=== PATIENT | female | born 1945 | race Caucasian/White ===

== ENCOUNTER → 2018-01-08 | Outpatient (CLI) | payer MEDICARE | LOC: YCHH 11:25 | PROVIDERS: ATTEND General Practice | DX: N39.0 Urinary tract infection, site not specified (principal); D64.9 Anemia, unspecified; N18.9 Chronic kidney disease, unspecified; D50.0 Iron deficiency anemia secondary to blood loss (chronic) ==

== ENCOUNTER → 2018-02-09 | Outpatient (CLI) | payer MEDICARE | LOC: YCHH 14:53 | PROVIDERS: ATTEND Family Medicine | DX: N39.0 Urinary tract infection, site not specified (principal) ==

== ENCOUNTER → 2018-03-02 | Outpatient (CLI) | payer MEDICARE | LOC: YCHH 10:33 | PROVIDERS: ATTEND General Practice | DX: N39.0 Urinary tract infection, site not specified (principal) ==

== ENCOUNTER → 2018-04-13 | Outpatient (CLI) | payer MEDICARE | LOC: YCHH 10:58 | PROVIDERS: ATTEND General Practice | DX: N39.0 Urinary tract infection, site not specified (principal) ==

== ENCOUNTER → 2018-06-15 | Outpatient (CLI) | payer MEDICARE | LOC: YCHH 10:49 | PROVIDERS: ATTEND General Practice | DX: N39.0 Urinary tract infection, site not specified (principal) ==

== ENCOUNTER → 2018-11-02 | Outpatient (CLI) | payer MEDICARE | LOC: YCHH 11:54 | PROVIDERS: ATTEND General Practice | DX: D64.9 Anemia, unspecified (principal); N18.9 Chronic kidney disease, unspecified; E11.9 Type 2 diabetes mellitus without complications; E03.9 Hypothyroidism, unspecified; N39.0 Urinary tract infection, site not specified; I50.9 Heart failure, unspecified ==

== ENCOUNTER → 2019-02-01 | Outpatient (CLI) | payer MEDICARE | LOC: YCHH 09:58 | PROVIDERS: ATTEND General Practice | DX: N18.9 Chronic kidney disease, unspecified (principal); D64.9 Anemia, unspecified; E78.5 Hyperlipidemia, unspecified; D50.8 Other iron deficiency anemias; N39.0 Urinary tract infection, site not specified ==

== ENCOUNTER → 2019-03-15 | Outpatient (CLI) | payer MEDICARE | LOC: YCHH 11:29 | PROVIDERS: ATTEND General Practice | DX: N39.0 Urinary tract infection, site not specified (principal); D64.9 Anemia, unspecified; E11.9 Type 2 diabetes mellitus without complications; N18.9 Chronic kidney disease, unspecified; E03.9 Hypothyroidism, unspecified ==

== ENCOUNTER → 2019-06-14 | Outpatient (CLI) | payer MEDICARE | LOC: YCHH 10:01 | PROVIDERS: ATTEND General Practice | DX: D64.9 Anemia, unspecified (principal); E11.9 Type 2 diabetes mellitus without complications; N18.9 Chronic kidney disease, unspecified; E03.9 Hypothyroidism, unspecified ==

== ENCOUNTER → 2019-07-05 | Outpatient (CLI) | payer MEDICARE | LOC: YCHH 11:35 | PROVIDERS: ATTEND General Practice | DX: D64.9 Anemia, unspecified (principal); N18.9 Chronic kidney disease, unspecified; E03.9 Hypothyroidism, unspecified; E11.9 Type 2 diabetes mellitus without complications; I50.9 Heart failure, unspecified ==

== ENCOUNTER → 2019-07-19 | Outpatient (CLI) | payer MEDICARE | LOC: YCHH 11:07 | PROVIDERS: ATTEND General Practice | DX: N39.0 Urinary tract infection, site not specified (principal) ==

== ENCOUNTER → 2019-10-11 | Outpatient (CLI) | payer MEDICARE | LOC: YCHH 11:24 | PROVIDERS: ATTEND General Practice | DX: D64.9 Anemia, unspecified (principal); I50.9 Heart failure, unspecified; N18.9 Chronic kidney disease, unspecified; E78.5 Hyperlipidemia, unspecified ==

== ENCOUNTER → 2020-01-17 | Outpatient (CLI) | payer MEDICARE | LOC: YCHH 12:38 | PROVIDERS: ATTEND General Practice | DX: N18.9 Chronic kidney disease, unspecified (principal); D64.9 Anemia, unspecified; E78.5 Hyperlipidemia, unspecified; I50.9 Heart failure, unspecified ==

== ENCOUNTER → 2020-02-28 | Outpatient (CLI) | payer MEDICARE | END | disposition home or self-care (01) | LOC: YCHH 10:54 → LAB.NP 10:54 | PROVIDERS: ATTEND Family Medicine | DX: N39.0 Urinary tract infection, site not specified (principal) ==

== ENCOUNTER → 2020-03-02 | Outpatient (CLI) | payer MEDICARE, MEDICAID ==
--- NOTE | 2020-03-02 18:07 | MRI ---
EXAM DESCRIPTION: Lumbar Spine w/wo Contrast: Magnetic Resonance Imaging. CLINICAL HISTORY: ELEVATED ESR EPIDURAL ABSCESS COMPARISON: None Available. TECHNIQUE: Multiplanar, MRI, multiple standard sequences, without and with 1 mL for 5 kg body weight Gadolinium IV contrast, lumbar spine. No adverse reactions. FINDINGS: L5-S1: L5-S1 disc space is well identified on T2 axial series 501, image 3. Normal signal in the disc and disc space preserved. Particularly the bilateral facets joints and posterior ligaments more on the left. Normal enhancement. Minimal disc bulge into the left foramen with moderate to severe narrowing. Moderate to severe narrowing of the right foramen. No abnormal enhancement. L4-L5: Significant alignment abnormality with the L4 vertebral body oriented/subluxed to the right of the L5 vertebral body. This is consistent with a congenital abnormality with the disc space seen only as a thin line in the bone on the left aspect, also retrolisthesis 4 mm at L4-L5. 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 Facet joints are also partially fused more on the right and left. Rudimentary disc space is slightly wider to the right of midline. Partial right laminectomy with AP canal diameter 10 mm. Hyperintense T1, T2, and STIR circumscribed meningioma in the inferior right posterior L4 vertebral body which is enhancing. A well marginated channel courses posteriorly and right between the lamina of L4 and L5, from the posterior right spinal canal to the posterior cortex. This appears to be surgically introduced. Enhancement is seen within this channel and also posteriorly in the soft tissues, which could indicate a defect in the bone, communicating with the posterior soft tissues. This material is low-density on T2 and T1 sequences. Possible cellulitis vs. small abscess. L3-L4: Severe disc space loss in the midline and after midline which could represent another anomalous partial fusion of the disc space and posterior elements. Moderate to severe left foraminal stenosis. Rudimentary disc space on the right. Moderate severe narrowing of the right foramen. Left posterior partial laminectomy and decompression. Minimal enhancement in the soft tissues abutting the defect to the left of midline. Mild canal narrowing. Well-circumscribed hyperintense T1 and T2 and STIR hemangioma in the left inferior L3 vertebral body which also enhances. Bilateral hypertrophic facet joints and thickened ligament on the right (canal elements). L2-L3: Disc desiccation with minimal posterior disc space loss. Trace anterolisthesis. Posterior tiny midline bulge. Hypertrophic changes in the canal elements with narrowing of the transverse canal. AP canal diameter 9 mm. No abnormal contrast enhancement. Moderate to severe foraminal narrowing bilaterally. L1-L2: Disc desiccation disc space preserved except posterior. No significant bulge. Hypertrophic changes in the canal elements bilaterally. AP canal diameter 11 mm. Bilateral severe foraminal narrowing or borderline stenosis.. No abnormal contrast enhancement. T12-L1: Disc desiccation. Minimal posterior disc bulge and disc space narrowing. Anterior mild endplate reactive changes. Bilateral moderate to severe foraminal narrowing. No abnormal contrast enhancement. Marked scoliosis L3-S1 and spondylolisthesis at several levels as described above. Included cord and conus with normal signal, size, and enhancement. Vertebral bodies are not compressed at any level. Otherwise normal marrow signal in the vertebral bodies and the posterior elements. No other regions of abnormal Contrast enhancement. Paravertebral soft tissues otherwise unremarkable..Perivertebral contrast enhancement normal except areas wHere described. IMPRESSION: 1. 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 Apparently a surgical channel was introduced on the right between the L4 and L5 partially fused lamina. Possible communication between the spinal canal and the posterior soft tissues through this channel. Enhancement in the posterior soft tissues may represent cellulitis or early abscess, but no definite fluid collection, cyst, or mass. No specific enhancing mass or hematoma seen within the spinal canal. Consider neurosurgical consult and CT scan lumbar spine correlation. 2. Partial left laminectomy defect at L4 also demonstrating a possible communication between the spinal canal and left posterior paraspinal soft tissues with minimal edema and enhancement. 3. Multiple levels of moderate to severe foraminal narrowing and foraminal stenosis unilaterally or bilaterally. Multiple levels of hypertrophic facet joints and foraminal ligaments contributing to canal/foraminal narrowing/stenosis. Please see above details. 4. Mild central canal stenosis at L2-L3 which is multifactorial. Also severe bilateral foraminal stenosis. Electronically signed by: Adolph Mcclain MD 03/02/2020 6:06 PM CDT
== END ==
LOC: MRI 07:00
PROVIDERS: ATTEND General Practice
DX: M51.86 Other intervertebral disc disorders, lumbar region (principal); M43.26 Fusion of spine, lumbar region; M48.061 Spinal stenosis, lumbar region without neurogenic claudication; M46.96 Unspecified inflammatory spondylopathy, lumbar region; M24.28 Disorder of ligament, vertebrae; G06.2 Extradural and subdural abscess, unspecified; R60.9 Edema, unspecified; R70.0 Elevated erythrocyte sedimentation rate; Z98.890 Other specified postprocedural states